=== PATIENT | female | born 1960 | race Caucasian/White ===

== ENCOUNTER → 2016-08-19 | Outpatient (CLI) | payer BC ==
--- NOTE | 2016-08-19 11:56 | DI ---
LEFT FOOT, 08/19/2016 9:49 AM: Clinical History: Left foot pain. Previous Exam: 12/07/2014. 3 views are submitted. Since the previous exam, the threaded compression screw inserted through the b ase of the fifth metatarsal bone has been removed. The fracture at the base of the fifth metatarsal b one has healed. The remainder of the foot exam is normal. Reading: Healed fracture at the base of the fifth metatarsal bone. The threaded transfixion screw has been rem иван.
== END ==
LOC: ORTHO 10:10
PROVIDERS: ATTEND Orthopaedic Surgery
DX: M79.672 Pain in left foot (principal)
CPT/HCPCS: 73630

== ENCOUNTER → 2016-09-04 | Outpatient (CLI) | payer BC ==
--- NOTE | 2016-09-04 11:43 | DI ---
NM BONE JOINT WHOLE BODY,09/04/2016 7:47 AM: Clinical History: Prior left fifth metatarsal fracture Previous Exam: Plain films performed August 19, 2016. Findings: Multiple views of both feet are obtained 2 hours following the intravenous administration of 29.5 mCi of technetium 99m MDP, and demonstrate focal increased uptake involving the proximal left third and fourth proximal metatarsals. There is also some mild increased uptake involving the proximal most portion of the fifth metatarsal. Surrounding soft tissues are unremarkable. Impression: Focal increased uptake involving the proximal third and fourth metatarsals and the proximal most port ion of the fifth metatarsal. These are most consistent with stress changes. Correlate clinically. The re is no corollary on the comparison plain films.
== END ==
LOC: NM 07:18
PROVIDERS: ATTEND Orthopaedic Surgery
DX: M79.671 Pain in right foot (principal); M79.672 Pain in left foot
CPT/HCPCS: 78306; A9503

== ENCOUNTER → 2016-09-13 | Outpatient (CLI) | payer BC ==
--- NOTE | 2016-09-16 09:30 | DI ---
CT BONE DENSITOMETRY OF THE SPINE AND HIP, 09/13/2016 1:48 PM : Clinical History: Spontaneous fracture. Previous Exam: March 14, [address] (QCT) Bone Mineral Densitometry: The [place] scans are normal. Low dose scans are obtained of the lumbar spine and sampling is obtaine d through the midbodies of L1 and L2. The average volumetric bone mineral density (BMD) of the lumbar spine is 134.2 mg/cm3. This value corresponds to a volumetric T-score of -1.3 and Z-score of 0.6 as assessed by this BMD software. Volumetric 3D QCT and areal DEXA T-scores and Z-scores are not directl y equivalent. Using the [employer]'s (ACR) volumetric QCT trabecular spine BMD con version table that is closely equivalent to the areal WHO diagnostic categories, this patient falls i nto the category of normal bone mineral density. CT X-Ray Absorptiometry (CTXA) Hip Bone Mineral Densitometry: Low dose scans are obtained through the hips for assessment of bone mineral density (BMD) and T-score s and Z-scores of the left hip. Total hip BMD: 0.809 mg/cm2 T-score: -0.98 Z-score: Femoral neck BMD: 0.663 mg/cm2 T-score: -1.2 Z-score: Note: T-scores of the spine and hip exhibit discordant readings approximately 40% of the time in eval uated patients. Changes in BMD determined either by volumetric QCT or areal DEXA are more reliable in assessment of change in a patient's BMD status rather than changes in T-scores. The CTXA hip CT bone mineral density measurements and the resultant T-scores and Z-scores are exact hip DEXA scan equival ents. The femoral neck T-score can be used in the WHO's FRAX program for assessing an untreated patie nt's 10 year fracture risk. READING: Osteopenia of the femoral neck with normal bone mineral density of the spine and the left total hip.
== END ==
LOC: CT 13:45
PROVIDERS: ATTEND Nurse Practitioner Family
DX: Z87.81 Personal history of (healed) traumatic fracture (principal)
CPT/HCPCS: 77078

== ENCOUNTER → 2016-09-18 | Outpatient (CLI) | payer BC ==
[2016-09-18 07:14] LABS: BASOPHILS # (AUTO) 0.04 10*3/UL; BASOPHILS % (AUTO) 0.8 % (0-1); EOSINOPHILS % (AUTO) 3.8 % (0-8); HEMATOCRIT 40.1 % (37.0-47.0); HEMOGLOBIN 14.3 g/dL (12.0-16.0); IMM GRAN % (AUTO) 0 % (0-5); IMM GRAN# (AUTO) 0 10*3/UL; LYMPHOCYTES % (AUTO) 29.3 % (10-50); MEAN CORPUSCULAR HEMOGLOBIN 29.1 PG (27-31); MEAN CORPUSCULAR HGB CONC 35.7 g/dL (33-37); MEAN PLATELET VOLUME 9.7 FL (7.4-12.2); MONOCYTES # (AUTO) 0.41 10*3/UL (0.3-0.8); MONOCYTES % (AUTO) 8.6 % (5-15); NEUTROPHILS # (AUTO) 2.75 10*3/UL; NEUTROPHILS % (AUTO) 57.5 % (50-80); RDW COEFFICIENT OF VARIATION 13.1 % (11.5-14.5); RED BLOOD COUNT 4.91 10^6/uL (4.20-5.40); WHITE BLOOD COUNT 4.78 10^3/uL (4.8-10.8)
[2016-09-18 07:19] LABS: PLATELET MORPHOLOGY COMMENT NORMAL MORPHOLOGY (NORM)
[2016-09-18 08:50] LABS: ASPARTATE AMINO TRANSFERASE 24 IU/L (8-39); BILIRUBIN,TOTAL 0.5 mg/dL (0.3-1.2); BLOOD UREA NITROGEN 19 mg/dL (7-22); BUN/CREATININE RATIO 27.14 (6-20); CALCIUM 9.5 mg/dL (8.7-10.7); CHLORIDE 106 meq/L (98-112); CREATININE 0.7 mg/dL (0.50-1.20); EST GLOMERULAR FILTRATION > 60 (>60 ml/min/1.73m(2)); GLUCOSE 94 mg/dL (78-110); PHOSPHORUS 4.3 mg/dl (2.4-4.3); POTASSIUM 4.1 meq/L (3.8-5.2); SODIUM 143 meq/L (135-145); TOTAL PROTEIN 7.2 g/dL (6.1-8.0)
[2016-09-18 08:58] LABS: ERYTHROCYTE SEDIMENTATION RATE 6 MM/HR (0-20)
[2016-09-19 13:41] LABS: A/G RATIO 1.15 (()); ALB PEP SER 3.8 g/dL (3.4-4.7); ALP1 GLOB 0.2 g/dL (0.1-0.3); ALP2 GLOB 0.9 g/dL (0.6-1.0); BETA GLOBS 0.9 g/dL (0.7-1.2); GAMMA GLOBS 1.2 g/dL (0.6-1.6)
[2016-09-19 14:06] LABS: IMPRESSION SEE COMMENTS (())
== END ==
LOC: LAB 06:55
PROVIDERS: ATTEND Nurse Practitioner Family
DX: M85.80 Other specified disorders of bone density and structure, unspecified site (principal); Z87.81 Personal history of (healed) traumatic fracture
CPT/HCPCS: 36415; 80053; 82306; 82330; 83735; 83970; 84100; 84155; 84165; 84443; 85025; 85652